=== PATIENT | male | born 1940 | race Caucasian/White ===

== ENCOUNTER 2020-04-17 13:10 | Inpatient (IN) | payer MEDICARE, OTHER ==
[~2020-04-17] VITALS: Ht 188 cm; Wt 63.0 kg
--- NOTE | 2020-04-17 13:10 | NUR ---
PT TO ROOM VIA EMS; PT ALERT AND CONFUSED AT THIS TIME
--- NOTE | 2020-04-17 13:20 | NUR ---
PT CHANGED TO GOWN. MONITORS IN PLACE. PT ASSESSED. PT HAS NO COMPLAINTS. PT ALERT TO TIME, PLACE AND SELF. UNABLE TO EXPLAIN WHAT HE WAS DOING OR WHERE HE WAS PRIOR TO ARRIVAL AT HOSPITAL. PT SKIN PINK WARM AND DRY.
[2020-04-17 13:40] LABS: HEMATOCRIT 40.3 % (39.0-50.0); IMMATURE GRANULOCYTES 0.6 % (0.0-5.0); MEAN CORPUSCULAR HGB 29.3 pG CALC (26.0-32.0); MEAN CORPUSCULAR HGB CONC 32.3 g/dL CAL (32.0-36.0); NEUT# 4.27 thou/uL (1.82-7.42); RED BLOOD COUNT 4.43 mill/uL (4.70-6.10); RED CELL DISTRI WIDTH 15.9 % (11.5-15.5)
[2020-04-17 13:58] LABS: ALBUMIN 3.6 g/dL (3.2-5.0); BILIRUBIN, TOTAL 1.3 mg/dL (0.0-1.4); CREATININE 1.6 mg/dL (0.7-1.3); POTASSIUM 4.2 mmol/l (3.5-5.1); TOTAL PROTEIN 6.8 g/dL (6.3-8.2)
--- NOTE | 2020-04-17 14:12 | NUR ---
PHARMACY CONSULT ORDERED
--- NOTE | 2020-04-17 14:21 | NUR ---
SPOKE WITH SON KATHARINE MONACO VIA TELEPHONE, WHO STATES THIS IS NOT THE FIRST TIME HE HAS WALKED UP ON A STRANGERS HOUSE CONFUSED, AND THAT HE NEEDS TO BE CHECKED OUT BY THE DOCTOR. ALSO STATES THAT HE HAS TRIED TO GET THE PT TO GO TO THE DOCTOR FOR CHECK UPS ETC BUT PT REFUSES.
[2020-04-17 15:08] LABS: URINE BLOOD DIPSTICK TRACE-INTACT (NEGATIVE); URINE COLOR YELLOW; URINE GLUCOSE - DIPSTICK NEGATIVE (NEGATIVE); URINE KETONE NEGATIVE (NEGATIVE); URINE LEUK ESTERASE NEGATIVE (NEGATIVE); URINE NITRITE - DIPSTICK NEGATIVE (Negative); URINE PH 5.5 (4.5-8.0); URINE PROTEIN - DIPSTICK 30 mg/dL (NEG-TRACE); URINE SPECIFIC GRAVITY >=1.030
[2020-04-17 15:13] LABS: URINE BILIRUBIN - DIPSTICK NEGATIVE (NEGATIVE); URINE RBC 0-2 RBC/hpf (0-5); URINE WBC 0-2 WBC/hpf (0-5)
--- NOTE | 2020-04-17 15:29 | NUR ---
SBAR PRINTED TO FLOOR
--- NOTE | 2020-04-17 15:41 | NUR ---
ICU UNABLE TO TAKE REPORT AT THIS TIME
--- NOTE | 2020-04-17 16:27 | NUR ---
REPORT GIVEN TO JENA FAULKNER ICUI
--- NOTE | 2020-04-17 16:37 | NUR ---
SNORKELLING INSTRUCTOR AT BEDSIDE FOR ADMISSION ASSESSMENT
[2020-04-17 16:50] VITALS: BP 165/97
--- NOTE | 2020-04-17 16:50 | NUR ---
PT ADMITTED TO ICU BED 4 MS/OF WITH TELEMETRY FOR AMS.PT TRANSFERRED SELF WITH AX2, AMBULATED TO BED FROM STRETCHER. PT A&O TO PERSON AND PLACE, WITH CONFUSION. PT VERY REPETATIVE WITH QUESTIONS. PT PACED AFIB ON TELEMETRY ON MONITOR, HR 77. PACEMAKER TO LCHEST. PT DENIES CP, SOB OR DISTRESS. LS CLEAR THROUGHOUT, SA02@99% RA, RESPIRATION EVEN/UNLABORED. PT LOOKS EMANCIATED, WHEN ASKED THE LAST TIME HE ATE, PT STATED"I DON'T KNOW, IT COSTS ALOT TO PUT STUFF IN THE ICE BOX." ABDOMEN SOFT, NON-TENDER BSX4 ACTIVE. LBM 8-16-20 PER PT. UNKNOWN ALLERGY, PT HAS $180 KEN IN [place] RETAINED BY PT. WEIGHT 139LBS ON BED SCALE, PT STATES HT 6'2. PT HAS SCABBED ABRASIONS TO BILAT KNEES, MULTIPLE BRUISES ON BUE. 20G TO RAC, INFUSING NS@75ML/HR ORDERED. NO S/S OF INFILTRATION OR INFECTION AT SITE. PT ORIENTED TO UNIT, ROOM, AND CALL LIGHT. URINAL OFFERED AND LEFT AT BEDSIDE. CALL LIGHT IN REACH. WILL MONITOR.
--- NOTE | 2020-04-17 16:50 | NUR ---
PT TRANSPORTED VIA STRETCHER. MONITOR IN PLACE TO ICU
--- NOTE | 2020-04-17 17:34 | NUR ---
PT PULLED TELEMETRY OFF AND ATTEMPTED TO GET OUT OF BED, PT REORIENTED, ASSISTED BACK TO SUPINE IN BED, TURNED DOWN SKID ROAD MAN, LEADS REAPPLIED. CALL LIGHT IN REACH. WILL MONITOR.
--- NOTE | 2020-04-17 17:50 | NUR ---
PT PULLING AT EQUIPMENT AND IV SITE, IV SITE REINFORCED, PT REDIRECTED. CALL LIGHT IN REACH. WILL MONITOR.
--- NOTE | 2020-04-17 18:03 | NUR ---
LAB AT BEDSIDE FOR BLOOD DRAW.
--- NOTE | 2020-04-17 19:00 | NUR ---
REPORT RECEIVED FROM Jessica ESQUEDA RN, CARE OF PT ASSUMED AT THIS TIME.
[2020-04-17 20:00] VITALS: BP 153/91
--- NOTE | 2020-04-17 20:57 | NUR ---
PT OOB, CONFUSED, STATES HE IS LEAVING. ABLE TO RE-ORIENT TO SELF AND PLACE. RE-DIRECTED PT BACK TO BED. PT PULLED IV SITE OUT. AREA CLEANSED AND BANDAGED. IV CATH FOUND IN BED, INTACT.
--- NOTE | 2020-04-17 21:37 | NUR ---
ORDER RECEIVED FROM DR. HART TO START CARDIAC DIET. FROZEN DINNER TRAY PREPARED AND PROVIDED TO PT WITH PUDDING, JELLO, AND ENSURE CLEAR. PT SITTING UP EATING.
[2020-04-17 22:00] VITALS: BP 132/69
--- NOTE | 2020-04-17 22:05 | NUR ---
PT COMPLETED 100% FOOD AND DRINK PROVIDED. OFFERED PT MORE, PT DECLINES.
[2020-04-17 23:00] VITALS: BP 132/69
--- NOTE | 2020-04-18 00:04 | NUR ---
PT SLEEPING, APPEARS COMFORTABLE, NO APPARENT DISTRESS, RESPIRATIONS REGULAR AND UNLABORED. CALL LIZ WITHIN REACH.
--- NOTE | 2020-04-18 00:15 | NUR ---
WINCHER AT BEDSIDE DRAWING 0000 TROPONIN
--- NOTE | 2020-04-18 01:24 | NUR ---
TROPONIN RESULTS RECEIVED, RESULTS NEGATIVE.
--- NOTE | 2020-04-18 02:37 | NUR ---
PT SLEEPING, APPEARS COMFORTABLE, NO APPARENT DISTRESS, RESPIRATIONS REGULAR AND UNLABORED. CALL LIZ WITHIN REACH.
[2020-04-18 03:00] VITALS: BP 124/81
--- NOTE | 2020-04-18 04:24 | NUR ---
PT SLEEPING, APPEARS COMFORTABLE, NO APPARENT DISTRESS, RESPIRATIONS REGULAR AND UNLABORED. CALL LIZ WITHIN REACH.
[2020-04-18 05:13] LABS: HEMOGLOBIN 12.1 g/dl (14.0-18.0); IMMATURE GRANULOCYTES 0.4 % (0.0-5.0); MEAN CELL VOLUME 91.6 fL CALC (80.0-100.0); MEAN CORPUSCULAR HGB 29.2 pG CALC (26.0-32.0); MEAN CORPUSCULAR HGB CONC 31.8 g/dL CAL (32.0-36.0); NEUT# 3.88 thou/uL (1.82-7.42); RED BLOOD COUNT 4.15 mill/uL (4.70-6.10); RED CELL DISTRI WIDTH 15.9 % (11.5-15.5)
--- NOTE | 2020-04-18 05:15 | NUR ---
DENTURES PUT TO SOAK IN DENTURE CUP AT BEDSIDE.
[2020-04-18 05:35] LABS: ALBUMIN 3.2 g/dL (3.2-5.0); CHOLESTEROL HDL RATIO 4.3 (<4.4 (CALC)); CREATININE 1.4 mg/dL (0.7-1.3); POTASSIUM 4.3 mmol/l (3.5-5.1); TOTAL PROTEIN 5.9 g/dL (6.3-8.2)
[2020-04-18 06:11] VITALS: BP 186/62
--- NOTE | 2020-04-18 06:30 | NUR ---
PT UP OOB, RE-DIRECTED TO BED AFTER ASSISTING PT TP BATHROOM. 200ML QUAN URINE EMPTIED FROM URINAL. NEW SITE STARTED TO R-FA 20G. PROVIDED W/ ENSURE CLEAR AND CHOCOLATE PUDDING. PT SITTING UP IN BED EATING. CALL LIZ WITHIN REACH, AGREES TO CALL PRN.
--- NOTE | 2020-04-18 06:45 | NUR ---
RECIEVED REPORT FROM LUCIE PHILLIPS. ASSUMED PT CARE.
--- NOTE | 2020-04-18 07:15 | NUR ---
SPOKE WITH KATHARINE MONACO. PT SON. PT SON STATED THEY HAVE TRIED TO HELP FATHER BUT ARE UNABLE DUE TO SEVERITY OF ILLNESS AND CONFUSION, THAT THE PT IS FIXED ON MONEY CONCERNS AND IS UNWILLING TO GET GROCERIES OR CARE FOR HIMSELF OR HIS HOME. THE SON STATED THAT HE HIMSELF IS CARING FOR HIS OWN HEALTH ISSUES AND THAT OF HIS CHLOE, WHO WAS JUST D/C'D FROM THE HOSPITAL. JR KATHARINE ALSO STATED THAT THERE HAS BEEN A LONG HISTORY OF PT MENTAL HEALTH IN QUESTION AND AGREES THAT THE PT IS IN NEED OF PLACEMENT SOMEWHERE TO OVERSEE HIS HEALTH AND CARE. KATHARINE MONACO. [phone].
--- NOTE | 2020-04-18 07:30 | NUR ---
PT SON ZARA TOTH CALLED [phone] FROM [facility]. STATED THE SAME HISTORY OF PT BEING "TIGHT" WITH MONEY AND THAT THEIR MOTHER DUE TO LACK OF CARE BECAUSE PT WAS NOT WILLING TO TAKE HIS TO THE HOSPITAL BECAUSE OF MONEY. SON REPORT LONG HISTORY OF MENTAL HEALTH CONCERNS BUT SON IS UNABLE OR WILLING TO CARE FOR PT AND IS AGREEABLE AND REQUESTING PLACEMENT FOR FATHER, KATHARINE JANEY SR. CM NOTIFIED.
[2020-04-18 07:45] VITALS: BP 147/74
--- NOTE | 2020-04-18 07:45 | NUR ---
PT ALERT TO PERSON AND PLACE, ABLE TO MAKE NEEDS KNOWN. PT IS CONFABULATING. CONTINUES PACED AFIB ON TELEMETRY, HR 80. RESPIRATION EVEN/UNLABORED SA02@100% RA, LS CLEAR THROUGHOUT. AFEBRILE. ABDOMEN SOFT, NON-TENDER BSX4. 20G TO RFA INFUSING NS@75ML/HR, NO S/S OF INFILTRATION AT SITE. CALL LIGHT IN REACH. WILL MONITOR.
--- NOTE | 2020-04-18 08:00 | NUR ---
DR. HART AT BEDSIDE FOR ASSESSMENT AND TO DISCUSS PLAN OF CARE. NEW ORDERS RECIEVED.
--- NOTE | 2020-04-18 08:15 | NUR ---
DIETARY ON UNIT, BREAKFAST TRAY SET UP. PT ASSISTED WITH MOUTH CARE AND DENTURES.
--- NOTE | 2020-04-18 11:08 | NUR ---
NAREN FORMAN FROM THE [employer] CALLED TO CHECK ON PT, SHE STATED THAT SHE HAD HEARD FROM A RADIO FREQUENCY ENGINEER JUSTIN THE PT HAD BEEN FOUND WANDERING AND CONFUSED, SHE STATED THAT SHE HAD SPOKEN WITH THE SON KATHARIEN UP ON MULTIPLE OCCASIONS AND NOTIFIED DCF EARLIER THIS YEAR WITH NO RESOLUTION. ELDERLY RESOURCE PROGRAMS MADE AVAILABLE TO THE SON TO GET SOME ASSISTANCE FOR PT WAS GIVEN BUT NEVER PERSUED BY PT FAMILY. NAREN FORMAN IS A [employer] ADVOCATE AT [facility] #[phone].REFERRED TO NARESH.
[2020-04-18 11:30] VITALS: BP 140/68
--- NOTE | 2020-04-18 11:45 | NUR ---
PT OFF UNIT FOR SHOWER AND SHAVE. PT TOLERATED WELL. MOUTH CARE AND DENTURES CLEANED. PT ASSISTED BACK TO BED. LUNCH TRAY SET UP CALL LIGHT IN REACH. WILL MONITOR.
--- NOTE | 2020-04-18 12:42 | NUR ---
PT JEAN ALCANTAR JR CALLED WITH CODE, UPDATE GIVEN.
--- NOTE | 2020-04-18 13:00 | NUR ---
SON CHAYA PHONED FOR UPDATE. PATIENT OKAYED TO GIVE CODE AND UPDATE WITH ALL INFORMATION. UPDATED SON. SON STATES THAT THE OTHER SON KATHARINE HAS BEEN STEALING FROM FATHER AND HAS CREDIT CARDS THAT WERE TAKEN OUT IN FATHERS NAME. CONNECTED PHONE TO [employer] SO SON COULD SPEAK WITH FATHER.
--- NOTE | 2020-04-18 14:00 | NUR ---
JIAN MERRILL, ADULT PROTECTIVE CASH VAN SALESPERSON ARRIVED AT BEDSIDE. PT SON NOTIFIED AND VERBAL CONSENT OBTAIN TO RELEASE MEDICAL RECORDS. NURSING SUP NOTIFIED.
--- NOTE | 2020-04-18 17:37 | NUR ---
PT RESTING IN BED, DIETARY ON UNIT, DINNER TRAY SET UP.
[2020-04-18 17:42] VITALS: BP 154/95
[2020-04-18 19:45] VITALS: BP 138/93
--- NOTE | 2020-04-18 19:45 | NUR ---
RESTING IN BED. AWAKE, ALERT. ORIENTED TO PERSON ONLY. SPEECH CLEAR. MOVES ALL EXTREMITIES AND IS ABLE TO FOLLOW DIRECTIONS. RESO NON-LABORED. LUNGS CLEAR THROUGHOUT. NO PERIPHERAL EDEMA, PULSES INTACT. IV IN RFA FOUND DISLODGED WITH CATHETER INTACT. RESTARTED #22 X1 ATTEMPT IN [place] WITH D5NS INFUSING AT 75 ML/HR. PEDICAB DRIVER SHOWS PACED RHYTHM WITH UNDERLYING AFIB. EXPLAINED PLAN OF CARE. DENIES NEEDS AT THIS TIME. REVIEWED USE OF CALL LIZ.
--- NOTE | 2020-04-18 20:00 | NUR ---
ASSISTED PATIENT TO STAND AT SIDE OF BED TO USE URINAL. VOIDS QUAN URINE.
[2020-04-19] VITALS: BP 131/76
--- NOTE | 2020-04-19 | NUR ---
PATIENT RESTING IN BED WITH EYES CLSOED. IN NO APPARENT DISTRESS. VSS. PACED WITH UNERLYING AFIB ON MONITOR/
--- NOTE | 2020-04-19 02:00 | NUR ---
NO CHANGES TO REPORT. SLEEPING SOUNDLY.
[2020-04-19 04:00] VITALS: BP 135/89
--- NOTE | 2020-04-19 04:00 | NUR ---
VSS. PACED RHYTH , UNDERLYING AFIB ON MONITOR. IV SITE MAINTAINED IN EVERARDO WITH NS INFUSING AT 75 ML/HR, SITE SECURED WITH COBAN. ASSISTED PATIENT TO STAND AT SIDE OF BED TO VOID IN URINAL.
--- NOTE | 2020-04-19 06:45 | NUR ---
RECIEVED REPORT FROM LUCIE DUNBAR. ASSUMED PT CARE.
--- NOTE | 2020-04-19 07:30 | NUR ---
DIETARY ON UNIT BREAKFAST TRAY SET UP.
[2020-04-19 08:00] VITALS: BP 135/89
--- NOTE | 2020-04-19 08:00 | NUR ---
PT ALERT TO PERSON & PLACE, ABLE TO MAKE NEEDS KNOWN. DENIES CP, SOB OR DISTRESS AT THIS TIME. RESPIRATION EVEN/UNLABORED, SA02@99%RA, LS CLEAR THROUGHOUT . ABDOMEN SOFT, NON-TENDER, BSX4 ACTIVE. PT REMAINS CONFUSED, REPETATIVE WITH QUESTIONS. CALL LIGHT IN REACH. WILL MONITOR.
--- NOTE | 2020-04-19 08:30 | NUR ---
PT DNL CHLOE CALLED WITH CODE, UPDATE GIVEN. CHLOE VERY DEMANDING ASKING WHEN PT WAS GOING TO BE TRANSFERRED TO LTC AND WHICH ONE. UNABLE TO ANSWER, REFERRED TO CM. CALL TRANSFERRED TO MARLEN IN CM.
[2020-04-19 12:03] VITALS: BP 147/67
--- NOTE | 2020-04-19 12:05 | NUR ---
PT RESTING IN BED, DIETARY ON UNIT, LUNCH TRAY SET UP. PT REQUESTED CHOCOLATE ENSURE, DIETARY NOTIFIED.
--- NOTE | 2020-04-19 16:08 | NUR ---
PT SON CHAYA TOTH CALLED WITH THE CODE, UPDATE GIVEN.
[2020-04-19 16:30] VITALS: BP 146/87
--- NOTE | 2020-04-19 19:00 | NUR ---
REPORT RECEIVED FROM Jessica ESQUEDA RN, CARE OF PT ASSSUMED AT THIS TIME.
--- NOTE | 2020-04-19 19:30 | NUR ---
PT ASSISTED TO POSITION BED TO SIT UP. FRESH WATER, ENSURE, APPLE JUICE, PUDDING CUP AND NUTRIGRAIN BAR PROVIDED. PT SITTING UP EATING.
[2020-04-19 20:00] VITALS: BP 146/80
--- NOTE | 2020-04-19 20:00 | NUR ---
PT FINISHED 100% OF PROVIDED SNACK. PHYSICAL ASSESMENT COMPLETE. VS TAKEN. NIBP 146/80mmHg. PT PACED AT 75bpm WITH UNDERLYING AFIB. T 96.6 TYMPANIC. RESPIRATIONS REGULAR AND UNLABORED. RESTING IN BED. DENIES FURTHER NEEDS. CALL LIZ WITHIN REACH, AGREES TO CALL PRN.
--- NOTE | 2020-04-19 22:23 | NUR ---
BED ALARM SOUNDS, PT OOB, DISORIENTED TO PLACE, PULLED APART IV, STATES HE WAS WORKING ALL DAY AND HE NEEDS TO GO HOME. RE-ORIENTED TO PLACE AND REDIRECTED PT TO SIT INTO RECLINER. PT CLEANED UP AND GOWN CHANGED. PULLED CATHETER FOUND IN BED, CATH INTACT. LINENS CHANGED. PT ASSISTED BACK TO BED. CALL LIZ WITHIN REACH, AGREES TO CALL PRN.
--- NOTE | 2020-04-20 00:35 | NUR ---
PT APPEARS TO BE SLEEPING, APPEARS COMFORTABLE, NO APPARENT DISTRESS, RESPIRATIONS REGULAR AND UNLABORED. CALL LIZ WITHIN REACH.
[2020-04-20 01:44] VITALS: BP 148/91
--- NOTE | 2020-04-20 01:45 | NUR ---
PT SETS OFF BED ALARM ATTEMPTING TO GET OOB. PT DISORIENTED TO PLACE. WANTS TO "PUT ON PANTS AND GO". ABLE TO RE-ORIENT PT TO PLACE AND PT AGREES TO STAY IN BED. BED ALARM ON. CALL LIZ WITHIN REACH.
--- NOTE | 2020-04-20 03:08 | NUR ---
PT AWAKE, SETS OFF BED ALARM BY STANDING UP OOB. PT DISORIENED TO PLACE AND INSISTENT HE WANTS TO LEAVE. PT RE-ORIENTED EASILY WITH VERBAL CUES. PT DOES NOT WANT TO GET BACK INTO BED, PT AGREES TO SIT IN RECLINER. COFFEE ND PUDDING PROVIDED PER PTS REQUEST. PT SITTING UP IN CHAIR EATING/DRINKING. PT ASKS "IS IT REALLY 3 IN THE MORNING?" CONFIRM TIME FOR PT. PT STATES "ILL GO BACK TO BED IN A FEW MINUTES". CALL LIZ IN REACH, AGREES TO CALL PRN.
--- NOTE | 2020-04-20 03:39 | NUR ---
PT UP OOB, REQUEST TO USE THE BATHROOM FOR BOWEL MOVEMENT, PT ASSISTED TO BATHROOM, PASSED LARGE BM.
--- NOTE | 2020-04-20 04:28 | NUR ---
PT REQUIRES FREQUENT RE-ORIENTATION, RE-ORIENTS QUICKLY TO VERBAL CUES. ORIENTED TO TIME AND PLACE EARLY IN SHIFT, WAKES UP ORIENTED TO SELF AND DISORIENTED TO TIME AND PLACE UNTIL RE-ORIENTED.
[2020-04-20 05:29] LABS: HEMATOCRIT 39.7 % (39.0-50.0); HEMOGLOBIN 12.7 g/dl (14.0-18.0); IMMATURE GRANULOCYTES 0.7 % (0.0-5.0); MEAN CELL VOLUME 92.3 fL CALC (80.0-100.0); MEAN CORPUSCULAR HGB 29.5 pG CALC (26.0-32.0); NEUT# 5.1 thou/uL (1.82-7.42); RED BLOOD COUNT 4.3 mill/uL (4.70-6.10); RED CELL DISTRI WIDTH 16.1 % (11.5-15.5)
[2020-04-20 05:36] VITALS: BP 159/99
--- NOTE | 2020-04-20 05:38 | NUR ---
NEW SITE STARTED TO EVERARDO, #22G, X2 ATTEMPT
[2020-04-20 05:49] LABS: BUN 27 mg/dL (8-23); BUN/CREATININE RATIO 23 (12-20 (CALC)); CARBON DIOXIDE 25 mmol/l (22-30); CHLORIDE 105 mmol/l (95-108); CREATININE 1.2 mg/dL (0.7-1.3); GFR 58 ML/MIN (>=60 (CALC)); GFR FOR AFR.AMER. > 60 ML/MIN (>=60 (CALC)); MAGNESIUM 1.8 mg/dL (1.6-2.3); SODIUM 134 mmol/l (137-146)
[2020-04-20 05:56] LABS: ANION GAP 10 (6-22 (CALC))
[2020-04-20 05:57] LABS: POTASSIUM 5.5 mmol/l (3.5-5.1)
--- NOTE | 2020-04-20 07:30 | NUR ---
pt resting in bed with eyes closed; no apparent distress noted; easily aroused; assessment completed at this time; pt alert to person and place; denies pain; no n/v noted; resp even and unlabored; lungs clear; skin color wnl; ra; hr irreg; wk pulses; no edema noted; paced on monitor/ underlined afib; abd soft with bs present; no bm noted per content writer; no urine to inspect at this time; urinal at bedside; #22 to inner [place]od[place] patent with ivf infusing without complication; no redness or edema noted at site; plan of care/ meds explained; call light within reach; will continue to monitor
--- NOTE | 2020-04-20 07:39 | NUR ---
04/18/20 Patient is screened for rehab intervention and it is felt he would benefit from speech and PT intervention if medical agrees and when he is stable
--- NOTE | 2020-04-20 07:51 | NUR ---
pt's son Reggie called this insurance underwriter; unable to provide passcode; informed family that pt is stable; will continue to monitor
[2020-04-20 08:10] VITALS: BP 170/95
--- NOTE | 2020-04-20 08:10 | NUR ---
awake in bed eating breakfast; no apparent distress noted; pt offers no complaints; iv intact and patent; afib/flutter/occ paced beats on monitor; call light within reach; will continue to monitor
--- NOTE | 2020-04-20 08:16 | NUR ---
pt's daughter in law called this ad writer; passcode verified; update provided; daughter in law requesting to speak to correctional case records supervisor; phone call transferred; will continue to monitor
--- NOTE | 2020-04-20 08:30 | NUR ---
Dr Lee present at bedside to assess pt and discuss plan of care; IV to holden infiltrated; fluids stopped/ discontinued; IV removed with catheter tip intact; will continue to monitor
[2020-04-20 10:15] VITALS: BP 153/86
--- NOTE | 2020-04-20 10:16 | NUR ---
awake in bed; no apparent distress noted; pt offers no complaints; iv intact; paced/afib on monitor; call light within reach; will continue to monitor
--- NOTE | 2020-04-20 11:25 | NUR ---
pt has removed front desk monitor; pt refusing to allow staff to reapply; pt noted sitting on side of bed; meal provided; iv intact; will continue to monitor
--- NOTE | 2020-04-20 11:40 | NUR ---
pt more confused; will not follow this content writer instructions; pt up and ambulating within room; pt refusing to allow this content writer to reapply monitoring attachment; pt turning off cardiac screen within room; pt will not dit in chair or bed as per content writer request; will continue to monitor
--- NOTE | 2020-04-20 11:41 | NUR ---
pt out of room ambualting withing icu unit; redirected to room; will continue to monitor
[2020-04-20 12:30] VITALS: BP 155/89
--- NOTE | 2020-04-20 12:30 | NUR ---
awake in bed; no apparent distress noted; iv intact; call light within reach; will continue to monitor
--- NOTE | 2020-04-20 13:00 | NUR ---
Dr Lee on unit; update provided; law writer informed pt is more confused; also informed pt refusing to wear cardiac cath technologist; pt now med surg no tele; will continue to monitor
--- NOTE | 2020-04-20 13:30 | NUR ---
awake; confused; ambulating within room; gait occasionally unsteady; refusing to allow staff to apply pvc monitor; pt refusing to sit in chair or bed; placed at nursing station for safety concerns; will continue to monitor
--- NOTE | 2020-04-20 13:32 | NUR ---
awake removing gown; reoriented; will continue to monitor
--- NOTE | 2020-04-20 14:05 | NUR ---
awake; pt remains at nurses station for pt safety; iv intact; no apparent distress noted; will continue to monitor
--- NOTE | 2020-04-20 16:02 | NUR ---
awake; remains at nursing station with staff for pt safety; iv intact; will continue to monitor
[2020-04-20 16:13] VITALS: BP 157/81
--- NOTE | 2020-04-20 18:21 | NUR ---
awake; remains at nursing station for safety; no apparent distress noted; iv intact;
--- NOTE | 2020-04-20 19:30 | NUR ---
RESTING IN BED AT THIS TIME. PAITENT ORIENTED TO PERSON ONLY. REPEATEDLY GETTING UP OOB ON HIS OWN, UNSTEADY WHEN UP. BED ALARM ON. RESP EVEN AND UNLABORED. LUNGS CLEAR. NO PERIPHERAL EDEMA, PULSES PALPABLE. SALINE LOCK INTACT IN LFA, SECURED WITH COBAN. PATIENT IS M/S OVERFLOW, NO TELEMETRY. PATIENT REQUIRES CLOSE MONITORING AND FREQ ATTMEMPTS AT REORIENTATION. REVIEWED USE OF CALL LIZ FOR ASSISTANCE. CALL LIZ IN PLACE.
--- NOTE | 2020-04-20 21:00 | NUR ---
ASLEEP. RESP NON-LABORED.
--- NOTE | 2020-04-20 22:00 | NUR ---
CONTINUES TO REST CALMLY AND QUIETLY.
--- NOTE | 2020-04-21 00:15 | NUR ---
UP TO BR TO VOID WITH ON ASSIST.
--- NOTE | 2020-04-21 05:45 | NUR ---
PATIENT HAS SLEPT WELL TONIGHT, UP ONCE EARLIER TO VOID THEN WENT RIGH BACK TO BED.
--- NOTE | 2020-04-21 05:50 | NUR ---
NO CHANGES TO REPORT. IN NO APPARENT DISTRESS. RESP EVEN AND INLABORED. SALINE LOCK FLUSHED AND PATENT.
[2020-04-21 05:56] LABS: ANION GAP 9 (6-22 (CALC)); BUN 23 mg/dL (8-23); BUN/CREATININE RATIO 23 (12-20 (CALC)); CARBON DIOXIDE 26 mmol/l (22-30); CHLORIDE 105 mmol/l (95-108); GFR > 60 ML/MIN (>=60 (CALC)); GFR FOR AFR.AMER. > 60 ML/MIN (>=60 (CALC)); POTASSIUM 4.4 mmol/l (3.5-5.1); SODIUM 135 mmol/l (137-146)
--- NOTE | 2020-04-21 06:45 | NUR ---
RECIEVED REPORT FROM LUCIE DUNBAR. ASSUMED PT CARE.
[2020-04-21 07:50] VITALS: BP 147/80
--- NOTE | 2020-04-21 08:00 | NUR ---
PT RESTING IN BED, A TO PERSON & PLACE WITH CONFUSION. REORIENTS EASILY. ABLE TO MAKE NEEDS KNOWN. RESPIRATIONS EVEN/UNLABORED, SA02@98% RA. LS CLEAR THROUGHOUT. ABDOMEN SOFT/NON-TENDER, BSX4 ACTIVE. DIETARY ON UNIT, BREAKFAST TRAY SET UP.
--- NOTE | 2020-04-21 09:30 | NUR ---
PT ASSISTED TO RECLINER.
--- NOTE | 2020-04-21 09:41 | NUR ---
PT DNL CHLOE CALLED WITH CODE, UPDATE GIVEN. CHLOE STATED THAT MARLEN WITH CM NOTIFIED HER YESTERDAY THE THE PT WAS BEING DISCHARGED TO [facility]. WILL CONSULT WITH CM.
--- NOTE | 2020-04-21 10:00 | NUR ---
DR. LOPEZ AT BEDSIDE FOR ASSESSMENT AND TO DISCUSS PLAN OF CARE, NEW ORDER RECIEVED.
--- NOTE | 2020-04-21 13:49 | NUR ---
PT JEAN ALCANTAR CALLED WITH CODE, UPDATE GIVEN. PT SLEEPING . CALL LIGHT IN REACH. WILL MONITOR.
--- NOTE | 2020-04-21 15:53 | NUR ---
PT UP TO THE BATHROOM, HAD BM AND VOIDED.
[2020-04-21 15:55] VITALS: BP 146/77
--- NOTE | 2020-04-21 18:45 | NUR ---
REPORT RECEIVED FROM JENA FAULKNER. CARE ASSUMED
[2020-04-21 19:00] VITALS: BP 134/63
--- NOTE | 2020-04-21 19:20 | NUR ---
PT RESTING IN BED AWAKE. PT IS ALERT AND ORIENTED TO SELF ONLY. PT STATES HE IS IN [place] AND IT IS YEAR 2003. REORIENTATION UNSUCCESSFUL. SHIFT ASSESSMENT COMPLETED AT THIS TIME. IV PATENT X1. CALL LIGHT IN REACH. BED ALARM SET FOR PT SAFETY. WILL CONTINUE TO MONITOR.
--- NOTE | 2020-04-21 20:00 | NUR ---
ASSESSMENT COMPLETED. SITTER AT BEDSIDE. NO DISTRESS NOTED; DENIES NEEDS/PAIN/OR CONCERNS AT THIS TIME. IV SITE PATENT AND SL. PT. IS CALM AND AFFECT IS FLAT. SUPERVISOR BAKERY SANITATION IN PLACE. ENCOURAGED TO CALL FOR ANY NEEDS. CALL LIGHT IS IN REACH. WILL CONTINUE TO MONITOR.
--- NOTE | 2020-04-21 21:59 | NUR ---
PT RESTING IN BED WITH EYES CLSOED. RESP ARE EVEN AND UNLABORED. NO DISTRESS NOTED. CALL LGIHT IN REACH. WILL CONTINUE TO MONITOR.
--- NOTE | 2020-04-21 23:59 | NUR ---
PT RESTING IN BED WITH EYES CLOSED. RESP ARE EVEN AND UNLABORED. NO DISTRESS NOTED. CALL LIGHT IN REACH. WILL CONTINUE TO MONITOR.
--- NOTE | 2020-04-22 02:04 | NUR ---
PT RESTING IN BED WITH EYES CLOSED. RESP ARE EVEN AND UNLABORED. NO DISTRESS NOTED. CALL LIGHT IN REACH. WILL CONTINUE TO MONIOTR.
[2020-04-22 04:00] VITALS: BP 149/88
--- NOTE | 2020-04-22 06:11 | NUR ---
PT RESTING IN BED WITH EYES CLOSED. RESP ARE EVEN AND UNLABORED. NO DISTRESS NOTED. CALL LIGHT IN REACH.
--- NOTE | 2020-04-22 07:00 | NUR ---
resting with eyes closed; no apparent distress noted; will continue to monitor
[2020-04-22 07:45] VITALS: BP 142/90
--- NOTE | 2020-04-22 07:45 | NUR ---
pt resting in bed with eyes closed; no apparent distress noted; easily aroused; offers no complaints; assessment completed at this time; pt alert to person and city; denies pain; no n/v noted; resp even and unlabored; lungs clear; skin color wnl; ra; hr irreg; strong pedal pulses; no edema noted; abd soft with bs present; no bm noted per scenario writer; no urine to inspect at this time; bsc; #22 flushed and patent to lfa; no redness or edema noted at site; plan of care/ am meds explained; meal setup for pt; bed alarm set for pt safety; call light within reach; will continue to monitor
--- NOTE | 2020-04-22 08:14 | NUR ---
awake in bed; family called to check on pt; passcode verified; update provided; family asking "any traces of dementia"; public relations writer informed family that pt does becomes confused; portable phone provided to pt to speak with family; will continue to monitor
--- NOTE | 2020-04-22 08:41 | NUR ---
DCF Vickie Pettit called per automotive service writer as per MD request; no answer; message left to return call
--- NOTE | 2020-04-22 08:53 | NUR ---
Dr Canchola present at bedside to assess pt and discuss plan of care
--- NOTE | 2020-04-22 08:59 | NUR ---
pt son Billy Clay called per technical report writer to discuss plan of care; son requesting pt to go to rehab; phone passed to Dr Canchola to speak with family; will continue to monitor
--- NOTE | 2020-04-22 12:12 | NUR ---
awake in bed eating lunch; no apparent distress noted; pt offers no complaints; iv intact; call light within reach; will continue to monitor
--- NOTE | 2020-04-22 14:00 | NUR ---
resting in bed with eyes closed; no apparent distress noted; bed alarm set for pt safety; will continue to monitor
[2020-04-22 14:44] VITALS: BP 133/80
--- NOTE | 2020-04-22 14:47 | NUR ---
REPORT REC FROM SantinoSOLANO LUCIE
--- NOTE | 2020-04-22 14:52 | NUR ---
report called to med surg [facility]; pt to transfer to med surg 260, no tele
--- NOTE | 2020-04-22 14:58 | NUR ---
PT ARRVIED VIA TO MS ACCOMPANIED BY CARLEE RN. PT ALERT TO SELF, PT VOICES CONFUSION IN REAGRDS TO WHY HE IS HERE AT THE HOSPITAL. STEADY GAIT OBSERVED WHILE HE AMBULATED TO THE BATHROOM. ALARM CLIPPED TO PT FOR SAFETY PRECAUTIONS. NO DISTRESS AT THIS TIME, DENIES ANY PAIN. ORIENTED PT TO ROOM, REINFORCEMENT NEEDED. CALL LIGHT IN REACH. CONTINUE TO MONITOR.
--- NOTE | 2020-04-22 15:00 | NUR ---
pt transferred to med surg room 260 via wc with belongings;
[2020-04-22 15:10] VITALS: BP 140/76
[2020-04-22 19:00] VITALS: BP 138/78
--- NOTE | 2020-04-22 22:43 | NUR ---
PT MEDICATED ORDERS PROVIDE AND ASSESSMENT COMPLETED AT THIS TIME. IVF STARTED ORDERED, NO FLUIDS RUNNING AT THIS TIME. NS @75 PER ORDERS. PT DENIES ANY PAIN OR DISTRESS. ASSISTED PT W/PO FLUIDS AND REPOSITIONING. TV AND LIGHTS ARE OFF, PT DENIES NEEDING TV ON.
--- NOTE | 2020-04-23 00:30 | NUR ---
ASSISTED PT TO USE URINAL AT BEDSIDE. 400CC OF CLEAR DARK YELLOW URINE OUTPUT. NO S/O DISTRESS NOTED.
[2020-04-23 04:09] VITALS: BP 143/81
--- NOTE | 2020-04-23 04:50 | NUR ---
PT SET BED ALARM OFF. PT IS UP STANDING NEXT TO THE BED. IV TUBING IS BEING PULLED, SITE STILL IN PLACE AND APPEARS HEALTHY. PT CONFUSED STATING HE NEEDS TO GO HOME. PT AGREED TO GET BACK IN THE BED, AGREED TO SOME COFFEE AND TV ON WITH OLD SHOW ON. NO S/O DISTRESS.
--- NOTE | 2020-04-23 05:37 | NUR ---
PT IN BED DRINKING COFFEE AND WATCHING TV. NO S/O DISTRESS NOTED.
--- NOTE | 2020-04-23 06:33 | NUR ---
PT SOUNDED BED ALARM. NEEDED TO USE RESTROOM. ASSISTED PT USING URINAL AT BEDSIDE. PT LEFT IN BED WITH BED ALARM BACK ON AND LIGHTS TURNED DOWN PER REQUEST.
[2020-04-23 07:09] VITALS: BP 149/86
[2020-04-23 07:27] VITALS: BP 137/81
--- NOTE | 2020-04-23 07:27 | NUR ---
PT SLEEPING IN BED, AWKANED TO COMPLETE ASSESSMENT. PT ALERT TO SELF, REORIENTED PT TO PLACE AND TIME. NO NEEDS OR PAIN AT THIS TIME. ASSESSMENT COMPLETED. DISCUSSED POC, REINFORCEMENT NEEDED. BED ALARM IN PLACE FOR FALL PREVENTION/SAFETY. CALL LIGHT IN REACH. CONTINUE TO MONITOR.
[2020-04-23] MEDS ORDERED: AMLODIPINE BESYL5 MG PO (11:29)
--- NOTE | 2020-04-23 11:40 | NUR ---
PT AMBULATING HALLWAY WITH STEADY GAIT OBSERVED.
--- NOTE | 2020-04-23 12:40 | NUR ---
PT SITTING IN BED. NO DISTRESS OR NEEDS AT THIS TIME. CALL LIGHT IN REACH. CONTINUE TO MONITOR.
[2020-04-23 15:00] VITALS: BP 138/72
--- NOTE | 2020-04-23 18:00 | NUR ---
PT SITTING IN BED. NO DISTRESS OR NEEDS AT THIS TIME. CALL LIGHT IN REACH. CONTINUE TO MONITOR
[2020-04-23 18:45] VITALS: BP 125/68
--- NOTE | 2020-04-23 18:49 | NUR ---
SPOKE TO SON KATHARINE ABOUT PTS TRANSFER AND UPDATED HIM . INFORMATION ABOUT [facility] WAS GIVEN. SON VERBALIZED UNDERSTANDING.
--- NOTE | 2020-04-23 19:47 | NUR ---
DISCHARGE DISCUSSED W/PT, HE IS CONFUSED ABOUT WHAT IS HAPPENING AND WHERE HE IS GOING. PT KEEPS ASKING WHERE HIS BIKE IS, HE STATES THAT HE THINKS IT IS AT THE [employer]. IV REMOVED FROM [facility] INTACT. PT RECEIVED A PHONE CALL FROM A FEMALE. APPEARED SOMEWHAT UPSET AND WAS TALKING ABOUT MONEY. LEFT PT ON PHONE, WILL FOLLOW-UP AND CONTINUE TO MONITOR.
--- NOTE | 2020-04-23 19:55 | NUR ---
PT AMBULATED TO [facility] REPORTED HE JUST TALKED TO HIS SON ON THE PHONE AND HE IS WANTING HIM TO LEAVE $180.00 HERE WITH THE NURSES FOR HIM TO COME GET. HE TOLD HIM HE COULD LEAVE HIM $100.00 HERE FOR HIM TO FIELD CAPTAIN. I INFORMED THE PT THAT WE ARE NOT PERMITTED TO KEEP MONEY HERE OR HOLD MONEY FOR HIM. ASSISTED PT CALL HIS SON BACK, LEFT PT IN ROOM TALKING TO SON ON THE PHONE.
--- NOTE | 2020-04-23 20:33 | NUR ---
PT OFF UNIT FLOOR DISCHARGED TO STA[facility] VIA WC IN STABLE CONDITION.
--- NOTE | 2020-04-23 21:15 | NUR ---
REPORT CALLED TO PC. VLAD
== END 2020-04-23 20:33 | DRG 884 ==
LOC: ED 13:10 → ED-I 15:15 → ED 15:26 → ICU 15:27 → MS2 04-22 14:58
PROVIDERS: Emergency Medicine; Nurse Practitioner; ADMIT Internal Medicine; ATTEND Internal Medicine
DX: F03.90 Unspecified dementia, unspecified severity, without behavioral disturbance, psychotic disturbance, mood disturbance, and anxiety (principal); E43 Unspecified severe protein-calorie malnutrition; N17.9 Acute kidney failure, unspecified; I48.19 Other persistent atrial fibrillation; Z68.1 Body mass index [BMI] 19.9 or less, adult; T76.01XA Adult neglect or abandonment, suspected, initial encounter; R64 Cachexia; E86.0 Dehydration; N18.9 Chronic kidney disease, unspecified; E87.5 Hyperkalemia; R62.7 Adult failure to thrive; R26.81 Unsteadiness on feet; Z60.2 Problems related to living alone; Z95.0 Presence of cardiac pacemaker; Z20.828 Contact with and (suspected) exposure to other viral communicable diseases

== ENCOUNTER 2021-11-14 09:14 | Observation (INO) | payer MEDICARE, MEDICAID, OTHER ==
[2021-11-14] VITALS (19 sets, daily range): BP systolic 107–145; BP diastolic 70–87
[~2021-11-14] VITALS: Ht 188 cm; Wt 82.0 kg
[~2021-11-14 09:14] MED LIST: AMLODIPINE BESYL5 MG PO
--- NOTE | 2021-11-14 09:30 | NUR ---
PT TO ROOM VIA WC ABLE TO STAND AND TRANSFER TO STRETCHER.
[2021-11-14 10:20] LABS: HEMATOCRIT 38.2 % (39.0-50.0); HEMOGLOBIN 12.4 g/dl (14.0-18.0); IMMATURE GRANULOCYTES 0.2 % (0.0-5.0); MEAN CORPUSCULAR HGB 30.8 pG CALC (26.0-32.0); MEAN CORPUSCULAR HGB CONC 32.5 g/dL CAL (32.0-36.0); NEUT# 15.17 thou/uL (1.82-7.42); RED BLOOD COUNT 4.02 mill/uL (4.70-6.10); RED CELL DISTRI WIDTH 16.4 % (11.5-15.5)
[2021-11-14 10:38] LABS: ALBUMIN 3.4 g/dL (3.2-5.0); BILIRUBIN, TOTAL 1.5 mg/dL (0.0-1.4); CREATININE 1.5 mg/dL (0.7-1.3); POTASSIUM 3.5 mmol/l (3.5-5.1); TOTAL PROTEIN 6.9 g/dL (6.3-8.2)
[2021-11-14] MEDS ORDERED: LIPITOR80 M1 PO (16:02)
[2021-11-14] MEDS ORDERED: SENNA PLUS 50-81 CAP PO (16:03)
[2021-11-14] MEDS ORDERED: POLYETHYLENE GLYCO2 PO (16:04)
[2021-11-14] MEDS ORDERED: MILK OF MAGNESI1 SUS PO (16:05)
[2021-11-14] MEDS ORDERED: MULTIVITAMIN1 TA1 PO (16:05)
[2021-11-14] MEDS ORDERED: DONEPEZIL10 MG PO (16:06)
[2021-11-14] MEDS ORDERED: MEMANTINE HYDRO10 MG PO (16:06)
[2021-11-14] MEDS ORDERED: TOPROL XL25 M1 PO (16:06)
[2021-11-14] MEDS ORDERED: ASPIRINCHW 81MG PO (16:07)
[2021-11-14] MEDS ORDERED: CITALOPRAM10 MG PO (16:07)
[2021-11-14] MEDS ORDERED: CLOPIDOGREL75 MG PO (16:07)
[2021-11-14] MEDS ORDERED: DULCOLAX10 MG RE (16:08)
--- NOTE | 2021-11-14 18:32 | NUR ---
REPORT CALLED TO [facility] AT THIS TIME. PT WILL BE TRANSPORTED UPSTAIRS
--- NOTE | 2021-11-14 19:08 | NUR ---
REPORT RECEIVED FROM Matthew ANN RN. PER REPORT PATIENT HAS JUST ARRIVED TO FLOOR.
--- NOTE | 2021-11-14 19:58 | NUR ---
FLUIDS AND ANTIBIOTIC HUNG AND STARTED AT THIS TIME.
[2021-11-15] VITALS: BP 134/66
--- NOTE | 2021-11-15 00:45 | NUR ---
PTIENT UP TO THE RESTROOM AT THIS TIME, AMBULATES WITH ONE ASSIST. ASSITED BACK TO BED BY WRITTER, CALL LIGHT AND BEDSIDE TABLE REPALCED WITHIN REACH.
[2021-11-15 04:00] VITALS: BP 139/78
--- NOTE | 2021-11-15 05:00 | NUR ---
PATIENT RESTING COMOFRTABLY, DENIES ANY CURRENT NEEDS AT THIS TIME. ONLY WANTS TO SLEEP. CALL IGHT AND BEDSIDE TABLE WITHIN REACH.
[2021-11-15 06:03] LABS: HEMATOCRIT 33.7 % (39.0-50.0); IMMATURE GRANULOCYTES 0.4 % (0.0-5.0); MEAN CELL VOLUME 95.2 fL CALC (80.0-100.0); MEAN CORPUSCULAR HGB 31.1 pG CALC (26.0-32.0); MEAN CORPUSCULAR HGB CONC 32.6 g/dL CAL (32.0-36.0); NEUT# 9.85 thou/uL (1.82-7.42); RED BLOOD COUNT 3.54 mill/uL (4.70-6.10); RED CELL DISTRI WIDTH 16.3 % (11.5-15.5)
[2021-11-15 06:51] LABS: BILIRUBIN, TOTAL 1.4 mg/dL (0.0-1.4); C-REACTIVE PROTEIN 6.9 mg/dL (0-0.9); CREATININE 1.5 mg/dL (0.7-1.3); POTASSIUM 3.3 mmol/l (3.5-5.1)
--- NOTE | 2021-11-15 07:00 | NUR ---
RECEIVE REPORT FROM CARLIE FAULKNER.
[2021-11-15 07:07] LABS: ALBUMIN 2.6 g/dL (3.2-5.0); TOTAL PROTEIN 5.5 g/dL (6.3-8.2)
--- NOTE | 2021-11-15 07:23 | NUR ---
Patient is screened for intervention and may benefti from cardiac monitored functional assessment due to recent non STEMI if medical agrees
[2021-11-15 08:00] VITALS: BP 139/78
--- NOTE | 2021-11-15 08:00 | NUR ---
PATIENT ALERT AND ORIENTED X3. FORGUETTFULL SOMETIME. STABLE AT THIS TIME. PATIENT IS EDUCATES ABOUT MEDICATIONS AND NURSING PLAN FOR TODAY. PATIENT REFER UNDERSTAND. PREVENTIVE ROUNDS EVERY HOUR FOR FALL PRECAUTION AND PATIENT SATISFACTIONS.
[2021-11-15] MEDS ORDERED: AMOX/K CLAV875 M1 PO (11:46)
== END 2021-11-15 13:19 ==
LOC: ED 09:14 → ED-I 10:12 → ED 10:12 → ED-I 14:40 → ED 15:28 → MS2 15:29
PROVIDERS: Family Medicine; ADMIT Hospitalist; ATTEND Hospitalist
DX: K56.41 Fecal impaction (principal); D72.829 Elevated white blood cell count, unspecified; E87.2 Acidosis; R79.89 Other specified abnormal findings of blood chemistry; I48.91 Unspecified atrial fibrillation; I25.10 Atherosclerotic heart disease of native coronary artery without angina pectoris; N18.9 Chronic kidney disease, unspecified; F03.90 Unspecified dementia, unspecified severity, without behavioral disturbance, psychotic disturbance, mood disturbance, and anxiety; I25.2 Old myocardial infarction; Z95.5 Presence of coronary angioplasty implant and graft; Z95.0 Presence of cardiac pacemaker; Z20.822 Contact with and (suspected) exposure to COVID-19
CPT/HCPCS: G0378; Q9967

== ENCOUNTER 2021-12-10 07:42 | Emergency (ER) | payer MEDICARE, MEDICAID, OTHER ==
[~2021-12-10] VITALS: Ht 188 cm; Wt 73.0 kg
[~2021-12-10 07:42] MED LIST changes: +AMOX/K CLAV875 M1 PO; +ASPIRINCHW 81MG PO; +CITALOPRAM10 MG PO; +CLOPIDOGREL75 MG PO; +DONEPEZIL10 MG PO; +DULCOLAX10 MG RE; +LIPITOR80 M1 PO; +MEMANTINE HYDRO10 MG PO; +MILK OF MAGNESI1 SUS PO; +MULTIVITAMIN1 TA1 PO; +POLYETHYLENE GLYCO2 PO; +SENNA PLUS 50-81 CAP PO; +TOPROL XL25 M1 PO
[2021-12-10 07:51] VITALS: BP 130/79
[2021-12-10 08:13] LABS: HEMOGLOBIN 12.7 g/dl (14.0-18.0); IMMATURE GRANULOCYTES 0.4 % (0.0-5.0); MEAN CELL VOLUME 95.5 fL CALC (80.0-100.0); MEAN CORPUSCULAR HGB 30.3 pG CALC (26.0-32.0); MEAN CORPUSCULAR HGB CONC 31.8 g/dL CAL (32.0-36.0); NEUT# 4.31 thou/uL (1.82-7.42); RED BLOOD COUNT 4.19 mill/uL (4.70-6.10); RED CELL DISTRI WIDTH 18.5 % (11.5-15.5)
[2021-12-10 08:25] LABS: ALKALINE PHOSPHATASE 134 u/l (38-126); BILIRUBIN, TOTAL 1.3 mg/dL (0.0-1.4); BUN 23 mg/dL (8-23); BUN/CREATININE RATIO 24 (12-20 (CALC)); CHLORIDE 100 mmol/l (95-108); GFR > 60 ML/MIN (>=60 (CALC)); GFR FOR AFR.AMER. > 60 ML/MIN (>=60 (CALC)); POTASSIUM 3.4 mmol/l (3.5-5.1); SGOT/AST 46 u/l (19-48); SODIUM 140 mmol/l (137-146)
[2021-12-10 08:29] LABS: ALBUMIN 3.4 g/dL (3.2-5.0); ANION GAP 8 (6-22 (CALC)); CARBON DIOXIDE 35 mmol/l (22-30); TOTAL PROTEIN 7.1 g/dL (6.3-8.2)
[2021-12-10] MEDS ORDERED: KLOR-CON M2020 MEQ PO (08:31)
[2021-12-10] MEDS ORDERED: LASIX 20 MG TAB20 MG PO (08:32)
[2021-12-10 08:51] LABS: URINE BILIRUBIN - DIPSTICK NEGATIVE (NEGATIVE); URINE BLOOD DIPSTICK NEGATIVE (NEGATIVE); URINE COLOR YELLOW; URINE GLUCOSE - DIPSTICK NEGATIVE (NEGATIVE); URINE KETONE NEGATIVE (NEGATIVE); URINE LEUK ESTERASE NEGATIVE (NEGATIVE); URINE PROTEIN - DIPSTICK 30 mg/dL (NEG-TRACE)
[2021-12-10 08:53] LABS: URINE MUCUS MODERATE hpf (NONE-FEW); URINE NITRITE - DIPSTICK NEGATIVE (Negative)
[2021-12-10 08:55] VITALS: BP 146/89
[2021-12-10 09:00] VITALS: BP 132/86
[2021-12-10 09:30] VITALS: BP 142/90
[2021-12-10 10:00] VITALS: BP 144/86
== END 2021-12-10 10:47 ==
LOC: ED 07:42
PROVIDERS: Family Medicine
DX: Z03.6 Encounter for observation for suspected toxic effect from ingested substance ruled out (principal); R41.82 Altered mental status, unspecified; E78.5 Hyperlipidemia, unspecified; I10 Essential (primary) hypertension; F03.90 Unspecified dementia, unspecified severity, without behavioral disturbance, psychotic disturbance, mood disturbance, and anxiety; I48.91 Unspecified atrial fibrillation; I25.2 Old myocardial infarction; Z95.0 Presence of cardiac pacemaker

== ENCOUNTER 2022-09-16 11:26 | Observation (INO) | payer MEDICARE, OTHER, MEDICAID ==
[2022-09-16] VITALS (9 sets, daily range): BP systolic 68–140; BP diastolic 41–87
[~2022-09-16] VITALS: Ht 188 cm; Wt 71.0 kg
[~2022-09-16 11:26] MED LIST changes: +KLOR-CON M2020 MEQ PO; +LASIX 20 MG TAB20 MG PO
[2022-09-16] MEDS ORDERED: DRONABINOL2.5 MG PO (11:57)
[2022-09-16] MEDS ORDERED: METOLAZONE2.5 MG PO (11:57)
--- NOTE | 2022-09-16 13:21 | NUR ---
pt states he passed out today, states he hit his head, but states no pain. pt forgetful
[2022-09-16 13:39] LABS: BASO% 0.3 % (0-3); HEMATOCRIT 42.9 % (39.0-50.0); LYMPH% 8.3 % (15-41); MEAN CELL VOLUME 99.3 fL CALC (80.0-100.0); MEAN CORPUSCULAR HGB 34.3 pG CALC (26.0-32.0); MEAN CORPUSCULAR HGB CONC 34.5 g/dL CAL (32.0-36.0); MONO% 5.8 % (2-13); NEUT# 8.56 thou/uL (1.82-7.42); NEUT% 83.6 % (42-76); RED BLOOD COUNT 4.32 mill/uL (4.70-6.10); RED CELL DISTRI WIDTH 14.4 % (11.5-15.5)
[2022-09-16 13:49] LABS: ALBUMIN 4.1 g/dL (3.2-5.0); BILIRUBIN, TOTAL 0.4 mg/dL (0.0-1.4); CREATININE 1.5 mg/dL (0.7-1.3); POTASSIUM 3.3 mmol/l (3.5-5.1); TOTAL PROTEIN 7.5 g/dL (6.3-8.2)
[2022-09-16 14:06] LABS: HEMOGLOBIN 14.8 g/dl (14.0-18.0)
--- NOTE | 2022-09-16 16:23 | NUR ---
pt sleeping, no distress
--- NOTE | 2022-09-16 17:05 | NUR ---
REPORT CALLED TO [facility]
--- NOTE | 2022-09-16 18:24 | NUR ---
PT CAME UP FROM ER IN WHEELCHAIR AT 1722. PT IS ALERT AND ORIENTED TO SELF. DENIES ANY PAIN AT THIS TIME. SKIN INTACT. EMS IV SITE IN THE LFA APPEARS HEALTHY. ASSESSMENT COMPLETED, SKIN INTACT. PT DOES NOT RECALL SYNCOBLE EPISODE, DOES PRESENT CONFUSION. BED ALARM PUT ON AND PT INSTRUCTED TO USE CALL LIGHT FOR ANY NEEDS. SAFETY PRECAUTIONS IN PLACE.
--- NOTE | 2022-09-16 20:00 | NUR ---
PATIENT SITTING UP IN BED-EYES ARE CLOSED-EASY TO AROUSE. P;ATIENT ORIENTED TO PERSON ONLY. KNOW HIS BIRTHDATE BUT CONFUSED TO TIME AND PLACE. REFUSING TO TAKE HIS JEANS OFF AT THIS TIME. HS MEDS GIVEN WITHOUT ANY DIFFICULTY. TAKING PO FLUIDS WHEN OFFERED BUT REFUSING DINNER. TELE MONTIOR IN PLACE IV SITE TO LEFT FOREARM INTACT AND HEALTHY AT THIS TIME. LUNGS ARE CLEAR. ABD SOFT WITH BS+. NO PERIPHERAL EDEMA NOTED. BED ALARM INPL BUD FOR PATIENT SAFETY. CALL LIGHT IN REACH. WILL CONT TO MONITOR.
--- NOTE | 2022-09-16 23:53 | NUR ---
PATIENT RESTING IN BED AT THIS TIME. EYES ARE CLOSED-EASY TO AROUSE. PATIENT ORIENTED TO PERSON ONLY. KNOW HIS BIRTHDATE BUT CONFUSED TO TIME AND PLACE. REFUSING TO TAKE OFF JEANS AT THIS TIME. HS MEDS GIVEN WITHOUT ANY DIFFICULTY. TAKING PO FLUJIDS WHEN OFFERED BUT REFUSING DINNER. TELE MONITOR IN PLACE. IV SITE TO LEFT FOREARM INTACT AND HEALTHY AT THIS TIME. LUNGS ARE CLEAR. ABD IS SOFT WITH BS+. NO PERIPHERAL EDEMA NOTED. BED ALARM IN PLACE FOR PATIENT SAFETY. CALL LIGHT IN REACH. WILL CONT TO MONITOR.
[2022-09-17 00:16] VITALS: BP 112/64
--- NOTE | 2022-09-17 00:18 | NUR ---
PATIENT RESTING IN BED WITH EYES CLOSED. RESPS ARE EVEN AND UNLABORED. BED ALARM IN PLACE FOR PATIENT SAFETY. CALL LIGHT IN REACH. WILL CONT TO MONITOR.
[2022-09-17 04:26] VITALS: BP 96/52
--- NOTE | 2022-09-17 05:20 | NUR ---
PATIENT RESTING IN BED-EASY TO AROUSE BUT STILL WILL NOT ALLOW STAFF TO TAKE JEANS OFF. STILL NEED URINE SPEC-VOIDED LAST NIGHT IN BR. AMBULATE WITH STAND BY ASSIST. TELE MONITOR IN PLACE. SALINE LOCK TO LEFT FOREARM INTACT. BED ALARM IN PLACE FOR PATIENT SAFETY. WILL CONT TO MONITOR.
[2022-09-17 06:04] LABS: URINE BILIRUBIN - DIPSTICK NEGATIVE (NEGATIVE); URINE BLOOD DIPSTICK TRACE-INTACT (NEGATIVE); URINE CLARITY CLEAR; URINE COLOR YELLOW; URINE GLUCOSE - DIPSTICK NEGATIVE (NEGATIVE); URINE KETONE NEGATIVE (NEGATIVE); URINE LEUK ESTERASE NEGATIVE (Negative); URINE NITRITE - DIPSTICK NEGATIVE (Negative); URINE PH 5.5 (4.5-8.0); URINE PROTEIN - DIPSTICK TRACE mg/dL (NEG-TRACE); URINE SPECIFIC GRAVITY 1.025; URINE UROBILINOGEN - DIPSTICK 0.2 E.U./dL (0.2)
--- NOTE | 2022-09-17 06:08 | NUR ---
BED ALRM IS GOING OFF AND RESPONDED TO THE ROOM-FOUND PATIENT TRYING TO GO TO THE BR-MIN ASSIST TO THE BR TO VOID. URINE SPEC OBTAINED AND SENT TO LAB. PATIENT ASSISTED OUT OF HIS JEANS THEY WERE WET. PATIENT ASSISTED TO THE RECLINER. CHAIR ALARM IN PLACE FOR PATIENT SAFETY. PATIENT UPSET ABOUT HIS JEANS BEING WET BUT REFUSED TO ALLOW STAFF TO REMOVE THEM ALL NIGHT. UPSET WITH BED ALARM BUT EXPLAINED TO THE PATIENT THE REASON WAS FOR HIS OWN SAFETY. CALL LIGHT IN REACH. WILL CONT TO MONITOR.
[2022-09-17 06:19] LABS: CHOLESTEROL HDL RATIO 4.6 (<4.4 (CALC)); MAGNESIUM 2.1 mg/dL (1.6-2.3)
[2022-09-17 06:28] VITALS: BP 133/72
--- NOTE | 2022-09-17 07:00 | NUR ---
Receive report from Remedios FAULKNER.
--- NOTE | 2022-09-17 08:00 | NUR ---
Patient alert and oriented x3 and forguetful. Stable at this time. Assessment head-to toe complete. Patient is educated aboud medications and nursing plan for today. Patient refer understand. Safety and fall precautions in place. Call light within in reach.
[2022-09-17 11:46] VITALS: BP 100/60
--- NOTE | 2022-09-17 12:53 | NUR ---
Patient stable at this time. Discharge orders done.
--- NOTE | 2022-09-17 13:39 | NUR ---
ATTEMPTED TO CALL [facility] MULTIPLE TIMES TO GIVE REPORT ON PT PRIOR TO D/C AND NO ANSWER.
--- NOTE | 2022-09-17 14:08 | NUR ---
Discharge instructions given. Patient verbalizes understanding of same. Discharged in stable condition via [facility] to [facility] with staff. All belongings sent with pt.
== END 2022-09-17 16:49 ==
LOC: ED 11:26 → ED-I 16:20 → ED 16:43 → MS2 16:44
PROVIDERS: Emergency Medicine; ADMIT Internal Medicine; ATTEND Internal Medicine
DX: R55 Syncope and collapse (principal); I48.91 Unspecified atrial fibrillation; I50.9 Heart failure, unspecified; I25.10 Atherosclerotic heart disease of native coronary artery without angina pectoris; F03.90 Unspecified dementia, unspecified severity, without behavioral disturbance, psychotic disturbance, mood disturbance, and anxiety; Z95.0 Presence of cardiac pacemaker
CPT/HCPCS: J1650

== ENCOUNTER 2024-05-04 12:58 | Emergency (ER) | payer MEDICARE, OTHER, MEDICAID ==
[~2024-05-04] VITALS: Ht 188 cm; Wt 63.6 kg
[~2024-05-04 12:58] MED LIST changes: +DRONABINOL2.5 MG PO; +METOLAZONE2.5 MG PO
[2024-05-04] MEDS ORDERED: Diph, Acellular Pertussis, Tet 0.5 ML/VIAL (Tdap) SDV IM ONE (13:55)
[2024-05-04] MEDS ORDERED: ceFAZolin 1 GM/VIAL SDV IM ONE (13:55)
[2024-05-04] MEDS ORDERED: STERILE WATER 10 ML/VIAL SDV IM ONE (13:55)
[2024-05-04 15:12] VITALS: BP 126/70
== END 2024-05-04 15:14 | disposition home or self-care (01) ==
LOC: ED 12:58
DX: S51.811A Laceration without foreign body of right forearm, initial encounter (principal); I48.91 Unspecified atrial fibrillation; W19.XXXA Unspecified fall, initial encounter; Y92.129 Unspecified place in nursing home as the place of occurrence of the external cause; Z95.5 Presence of coronary angioplasty implant and graft

== ENCOUNTER 2024-05-04 23:37 | Emergency (ER) | payer MEDICARE, OTHER, MEDICAID ==
[~2024-05-04] VITALS: Ht 188 cm; Wt 40.0 kg
[2024-05-05] VITALS (8 sets, daily range): BP systolic 103–131; BP diastolic 51–75
== END 2024-05-05 02:17 ==
LOC: ED 23:37
DX: S51.811A Laceration without foreign body of right forearm, initial encounter (principal); X58.XXXA Exposure to other specified factors, initial encounter; I48.91 Unspecified atrial fibrillation; Z95.0 Presence of cardiac pacemaker

== ENCOUNTER 2024-08-07 09:16 | Observation (INO) | payer MEDICARE, OTHER, MEDICAID ==
[2024-08-07] VITALS (39 sets, daily range): BP systolic 80–120; BP diastolic 43–100
[~2024-08-07] VITALS: Ht 188 cm; Wt 57.7 kg
--- NOTE | 2024-08-07 09:16 | NUR ---
PT ARRIVES VIA EMS FROM A LOCAL NURSING WITH THE REPORT FROM STAFF THAT AROUND 0800 THIS MORNING THE PT SEEMED TO BE MORE LETHARGIC THAN USUAL WITH SLURRED SPEECH AND LEFT SIDED FACIAL DROOP.
[2024-08-07] MEDS ORDERED: Iopamidol 370 (Isovue) 76% 100 ML SDV IV ONE ×2 (09:20)
[2024-08-07 09:38] LABS: BASO% 0.2 % (0-3); EOS% 0.3 % (0-8); IMMATURE GRANULOCYTES 0.5 % (0.0-5.0); LYMPH% 6.5 % (15-41); MEAN CORPUSCULAR HGB 34.4 pG CALC (26.0-32.0); MEAN CORPUSCULAR HGB CONC 31.9 g/dL CAL (32.0-36.0); MONO% 8.8 % (2-13); NEUT# 4.92 thou/uL (1.82-7.42); NEUT% 83.7 % (42-76); RED BLOOD COUNT 3.34 mill/uL (4.70-6.10); RED CELL DISTRI WIDTH 16.2 % (11.5-15.5)
[2024-08-07 09:51] LABS: BILIRUBIN, TOTAL 1.1 mg/dL (0.2-1.3); CREATININE 1.3 mg/dL (0.7-1.3); HEMOGLOBIN 11.5 g/dl (14.0-18.0); MEAN CELL VOLUME 107.8 fL CALC (80.0-100.0); POTASSIUM 3.8 mmol/l (3.5-5.1); TOTAL PROTEIN 6.5 g/dL (6.3-8.2)
[2024-08-07 09:52] LABS: INTERNATIONAL NORMALIZED RATIO 1.3 RATIO (0.7-1.3)
[2024-08-07] MEDS ORDERED: SODIUM CHLORIDE 0.9% 1,000 ML IV ONE (10:40)
[2024-08-07 10:46] LABS: URINE BLOOD DIPSTICK Moderate (NEGATIVE); URINE GLUCOSE - DIPSTICK Negative (NEGATIVE); URINE KETONE Negative (NEGATIVE); URINE LEUK ESTERASE Negative (NEGATIVE); URINE NITRITE - DIPSTICK Negative (Negative); URINE PROTEIN - DIPSTICK Trace mg/dL (NEG-TRACE); URINE SPECIFIC GRAVITY 1.015
[2024-08-07 10:48] LABS: URINE COLOR Yellow
[2024-08-07 10:49] LABS: URINE MUCUS MODERATE hpf (NONE-FEW)
--- NOTE | 2024-08-07 10:55 | NUR ---
PT RESTING, NO NEEDS AT THIS TIME.
[2024-08-07] MEDS ORDERED: LEVOTHYROXIN75 MC1 PO (12:15)
[2024-08-07] MEDS ORDERED: ARICEPT PO (12:16)
[2024-08-07] MEDS ORDERED: LEXAPRO5 MG PO (12:18)
[2024-08-07] MEDS ORDERED: LASIX 40 MG TAB40 MG PO (12:18)
[2024-08-07] MEDS ORDERED: MEMANTINE HYDRO10 MG (12:21)
[2024-08-07] MEDS ORDERED: REMERON15 MG PO (12:27)
[2024-08-07] MEDS ORDERED: CLOPIDOGREL BISULFATE 75 MG/TAB TAB PO ONE (13:05)
[2024-08-07] MEDS ORDERED: FUROSEMIDE 40 MG/4 ML SDV IV ONE (13:05)
[2024-08-07] MEDS ORDERED: ASPIRIN 81 MG/TAB PO ONE (13:05)
[2024-08-07] MEDS ORDERED: ATORVASTATIN CALCIUM 40 MG/TAB PO ONE (13:10)
--- NOTE | 2024-08-07 13:14 | NUR ---
PT PROVIDED WITH FRESH WARM BLANKETS, NO NEEDS AT THIS TIME.
--- NOTE | 2024-08-07 14:33 | NUR ---
PTS SON UPDATED ON STATUS OVER THE PHONE.
--- NOTE | 2024-08-07 15:13 | NUR ---
PT RESTING, NO NEEDS AT THIS TIME.
--- NOTE | 2024-08-07 16:50 | NUR ---
PT SLEEPING, NO NEEDS AT THIS TIME.
[2024-08-07] MEDS ORDERED: DONEPEZIL HCL 5 MG/TAB PO SCH (16:58)
[2024-08-07] MEDS ORDERED: ACETAMINOPHEN 325 MG/TAB PO PRN (17:05)
[2024-08-07] MEDS ORDERED: Polyethylene Glycol 3350 17 GM/PKT PO PRN (17:05)
[2024-08-07] MEDS ORDERED: SODIUM CHLORIDE 0.9% 1,000 ML IV PRN (17:05)
[2024-08-07] MEDS ORDERED: MAGNESIUM HYDROXIDE 30 ML UDC PO PRN (17:05)
--- NOTE | 2024-08-07 18:12 | NUR ---
PT PROVIDED WITH MEAL TRAY. PT DROWSY AND STATES HE IS NOT HUNGRY AT THIS TIME.
--- NOTE | 2024-08-07 20:10 | NUR ---
Patient in bed. Requires stimuli to responded but alert. Vitals obtained.
[2024-08-07] MEDS ORDERED: MIRTAZAPINE 15 MG/TAB PO SCH (21:00)
[2024-08-07] MEDS ORDERED: ENOXAPARIN SODIUM 40 MG/0.4 ML SYR SC SCH (21:00)
--- NOTE | 2024-08-07 21:38 | NUR ---
medication mirtazapine currently unavaiable. House sup contacted
--- NOTE | 2024-08-07 23:09 | NUR ---
Pt awake alert, responding appropriatly to questions. Pt took meications crushed in puddign but declined any other nurishment. Pt made comfortable.
[2024-08-08] VITALS (18 sets, daily range): BP systolic 83–118; BP diastolic 45–76
--- NOTE | 2024-08-08 02:09 | NUR ---
PT AWAKE ALERT. aBLE TO FOLLOW COMMANDS. PT CHANGED OUT OF WET DIAPER.
[2024-08-08] MEDS ORDERED: LEVOTHYROXINE SODIUM 75 MCG/TAB PO SCH (06:00)
--- NOTE | 2024-08-08 06:31 | NUR ---
pt sleepin in bed with eye closed. Rise and fall of ches visualized. Mornig medication held at this time due to pt resting
[2024-08-08 07:14] LABS: BASO% 0.6 % (0-3); EOS% 1.9 % (0-8); HEMATOCRIT 35.2 % (39.0-50.0); HEMOGLOBIN 10.9 g/dl (14.0-18.0); IMMATURE GRANULOCYTES 0.9 % (0.0-5.0); LYMPH% 8.7 % (15-41); MEAN CELL VOLUME 110.7 fL CALC (80.0-100.0); MEAN CORPUSCULAR HGB 34.3 pG CALC (26.0-32.0); MONO% 7.1 % (2-13); NEUT# 2.6 thou/uL (1.82-7.42); NEUT% 80.8 % (42-76); RED BLOOD COUNT 3.18 mill/uL (4.70-6.10); RED CELL DISTRI WIDTH 16.8 % (11.5-15.5)
[2024-08-08 07:35] LABS: ALBUMIN 2.7 g/dL (3.2-5.0); BILIRUBIN, TOTAL 1.1 mg/dL (0.2-1.3); CREATININE 1.2 mg/dL (0.7-1.3); MAGNESIUM 2.1 mg/dL (1.6-2.3); POTASSIUM 3.6 mmol/l (3.5-5.1); TOTAL PROTEIN 6.1 g/dL (6.3-8.2)
[2024-08-08] MEDS ORDERED: ESCITALOPRAM 10 MG/TAB PO SCH (09:00)
[2024-08-08] MEDS ORDERED: ASPIRIN 81 MG/TAB PO SCH (09:00)
[2024-08-08] MEDS ORDERED: METOPROLOL SUCCINATE 25 MG/TAB-TOPROL XL PO SCH (09:00)
--- NOTE | 2024-08-08 09:32 | NUR ---
neuro/tele cart in room. pt moved up in bed and wawake for neuro
--- NOTE | 2024-08-08 10:26 | NUR ---
pt transferred to the icu with no complications. report givn. p
--- NOTE | 2024-08-08 10:30 | NUR ---
PATIENT ARRIVED TO ICU ROOM 8 VIA STRETCHER. PATIENT AXO X3. S1S2 NOTED, NORMAL SINUS ON TELE. LUNG SOUNDS CLEAR, NO COUGH OR SOB NOTED. ABDOMEN SOFT, NON DISTENDED, NON TENDER. UPPER PULSES STRONG, LOWER WEAK. PATIENT IS VERY FRAIL, SKIN WARM AND DRY, SCATTERED BRUSING NOTED TO UPPER AND LOWER EXTREMITIES, SKIN TEAR NOTED TO LEFT KNEE, STAGE TWO PRESSURE ULCER NOTED TO COCCYX, DRESSINGS TO LEFT KNEE AND COCCYX CDI. CALL LIGHT IN REACH.
--- NOTE | 2024-08-08 12:00 | NUR ---
PATIENT LAYING DOWN IN BED ASLEEP. ALL NEEDS MET. CALL LIGHT IN REACH.
--- NOTE | 2024-08-08 13:51 | NUR ---
CONTACTED HERI Sexton RN AT [facility] FOR PATIENT HISTORY INFORMATION. VERBAL CONSENT GIVEN BY JANET GUNTER, PATIENT'S POA.
--- NOTE | 2024-08-08 14:00 | NUR ---
PATIENT LAYING DOWN IN BED ASLEEP. ALL NEEDS MET. CALL LIGHT IN REACH.
--- NOTE | 2024-08-08 14:37 | NUR ---
DR. LOPEZ NOTIFIED OF PATIENT'S REPEAT CT RESULTS
--- NOTE | 2024-08-08 16:00 | NUR ---
PATIENT LAYING DOWN IN BED RESTING. ALL NEEDS MET. CALL LIGHT IN REACH.
--- NOTE | 2024-08-08 18:00 | NUR ---
PATIENT LAYING DOWN IN BED ASLEEP. ALL NEEDS MET. CALL LIGHT IN REACH.
--- NOTE | 2024-08-08 18:04 | NUR ---
CONTACTED [facility] TO SCHEDULE S GROUND TRANSPORT TO [facility] PENDING DISCHARGE FOR THIS PATIENT. I SPOKE WITH [facility] AT 1804 HRS. [facility] PROVIDED AN ETA OF 1910 HRS.
--- NOTE | 2024-08-08 18:54 | NUR ---
CALLED [facility] AND GAVE REPORT TO
--- NOTE | 2024-08-08 19:45 | NUR ---
awake. denies distress. pt is VERY thin & emaciated. launchman shows paced rhythm. po fluis taken fair. incont of bowel & bladder-changed. requires total care for all needs. turned & repositioned.
--- NOTE | 2024-08-08 20:55 | NUR ---
[facility] here.
--- NOTE | 2024-08-08 21:10 | NUR ---
[facility] left.
== END 2024-08-08 21:10 ==
LOC: ED 09:16 → ED-I 12:30 → ED 13:07 → ICU 13:08 → ED-I 13:08 → ICU 08-08 09:35
PROVIDERS: Family Medicine; ADMIT Internal Medicine; ATTEND Internal Medicine
DX: R29.810 Facial weakness (principal); R20.0 Anesthesia of skin; I50.22 Chronic systolic (congestive) heart failure; G30.9 Alzheimer's disease, unspecified; F02.B0 Dementia in other diseases classified elsewhere, moderate, without behavioral disturbance, psychotic disturbance, mood disturbance, and anxiety; I48.91 Unspecified atrial fibrillation; I25.10 Atherosclerotic heart disease of native coronary artery without angina pectoris; R62.7 Adult failure to thrive; I65.21 Occlusion and stenosis of right carotid artery; Z86.73 Personal history of transient ischemic attack (TIA), and cerebral infarction without residual deficits; Z51.5 Encounter for palliative care; Z95.0 Presence of cardiac pacemaker
CPT/HCPCS: J1650; J1940; Q9967